=== PATIENT | male | born 1955 | race Caucasian/White ===

== ENCOUNTER 2019-01-13 17:48 | Inpatient (IN) ==
[2019-01-13 18:44] LABS: INFLUENZA A NEGATIVE (NEGATIVE); INFLUENZA B NEGATIVE (NEGATIVE)
[2019-01-13] MEDS ORDERED: TYLENOL PO ONE (19:28)
[2019-01-13 19:32] LABS: URINE SOURCE VOIDED
[2019-01-13 19:37] LABS: BASO# 0.02 X1000 (0.0-0.2); BASO% 0.2 % (0.0-0.8); EOS# 0.06 X1000 (0.0-0.7); EOS% 0.5 % (0.0-10.0); HEMOGLOBIN 15.3 g/dL (14.0-18.0); IMM GRAN# 0.06 X1000 (0.0-0.04); IMM GRAN% 0.5 % (0.0-0.5); LYMPH# 1.05 X1000 (1.2-3.4); LYMPH% 8.2 % (20.5-51.1); MCHC 35.6 g/dL (33-37); MCV 98.4 FL (81-99); MONO# 1.06 X1000 (0.11-0.59); MONO% 8.3 % (1.7-9.3); MPV 10.4 FL (7.4-10.4); NEUT# 10.52 X1000 (1.4-6.5); NEUT% 82.3 % (42.2-75.2); PLT 194 X1000 (130-400); RBC 4.37 XMIL (4.7-6.1); RDW 14.2 % (11.5-14.5); WBC 12.77 X1000 (4.8-10.8)
--- NOTE | 2019-01-13 19:42 | Diag Imaging Result Doc PS360 ---
EXAM: CT HEAD W/O CONTRAST HISTORY: confusion ,fever TECHNIQUE: CT head without contrast COMPARISON: None. FINDINGS: No parenchymal hemorrhage. No epidural or subdural hematoma. No subarachnoid hemorrhage. There is atrophy with chronic microvascular ischemic changes. No mass identified on this noncontrasted exam. No hydrocephalus. No sinus opacification. IMPRESSION: 1.No hemorrhage 2.Atrophy with chronic ischemic changes. This exam was performed using automated exposure control, adjustment of mA or kV according to patient size, and/or use of iterative reconstruction technique. Electronically signed by Hank Snider 01/13/2019 7:40 PM
--- NOTE | 2019-01-13 19:43 | Diag Imaging Result Doc PS360 ---
EXAM: CHEST-2 VIEWS HISTORY: shortness of breath; fever TECHNIQUE: Chest two views COMPARISON: None. FINDINGS: The lungs are well expanded. The heart is not enlarged. The vessels are not distended. There are small infiltrates in the left lower lobe. No pleural effusions. IMPRESSION: Small left lower lobe pneumonia. Electronically signed by Hank Snider 01/13/2019 7:41 PM
[2019-01-13 19:45] LABS: BILIRUBIN URINE NEGATIVE (NEGATIVE); BLOOD URINE 1+ (NEGATIVE); CLARITY CLEAR (CLEAR); COLOR YELLOW; GLUCOSE URINE NEGATIVE (NEGATIVE); KETONE URINE TRACE mg/dL (NEGATIVE); LEUKOCYTES URINE TRACE (NEGATIVE); NITRITE URINE NEGATIVE (NEGATIVE); PROTEIN URINE 1+(30 mg/dL) mg/dL (NEGATIVE); UROBILINOGEN URINE 4 mg/dL
[2019-01-13 19:49] LABS: ALBUMIN 4.1 g/dL (3.5-5.0); CALCIUM 9.6 mg/dL (8.8-10.2); CREATININE 1.4 mg/dL (0.7-1.2); POTASSIUM 4.1 mmol/L (3.5-5.1); TOTAL BILIRUBIN 0.8 mg/dL (0.20-1.00); TOTAL PROTEIN 7.1 g/dL (6.3-8.3)
[2019-01-13 19:52] LABS: URINE BACTERIA 2+ /HFP; URINE CAST NONE SEEN /LPF; URINE CRYSTAL NONE SEEN /HPF; URINE EPITHELIAL CELLS <10 /HPF (<10); URINE RBC <10 /HPF (<10); URINE WBC <10 /HPF (<10); URINE YEAST NONE SEEN /HPF
[2019-01-13 20:07] LABS: INR 0.97; PROTIME 13.4 Seconds (11.0-16.0); PTT 25.3 Seconds (22.3-41.8)
[2019-01-13] MEDS ORDERED: ZOSYN 3.375 GM in NS 50 ML IV ONE (20:14)
[2019-01-13] MEDS ORDERED: VANCOMYCIN 1 GM/NS 1 GM/250 ML IVPB IV ONE (20:15)
[2019-01-13 20:33] LABS: D-DIMER 7.63 ug/mLFEU (0.0-0.52)
[2019-01-13] MEDS ORDERED: ZITHROMAX 500 MG/NS 500 MG/250 ML IVPB IV ONE (21:15)
[2019-01-13] MEDS ORDERED: TYLENOL PO PRN (21:18)
[2019-01-13] MEDS ORDERED: ZOFRAN IV PRN (21:18)
[2019-01-13] MEDS ORDERED: ZITHROMAX 500 MG/NS 500 MG/250 ML IVPB ONE (22:21)
[2019-01-13] MEDS ORDERED: NS 1,000 ML IV ONE (22:35)
[2019-01-14] MEDS ORDERED: NS 1,000 ML IV ONE (02:03)
[2019-01-14 08:33] LABS: BE -0.8 mmoll (-3.0-3.0); BLOOD TYPE ARTERIAL; HCO3-(ACT) 24.2 mmoll (20.0-26.0); METHB 1.5 % (0.0-1.5); O2(CT) 18.3 mL/dL (15.0-23.0); O2HB 94.2 % (95.0-99.0); PCO2(98.6) 27 mmHg (35-45); PO2(98.6) 79 mmHg (60-100); SAMPLE BLOOD; SAO2 98.3 % (95.0-100.0); THB 13.8 g/dL (11.5-17.4)
[2019-01-14 08:41] LABS: ALLEN TEST YES; MODALITY ROOM AIR
[2019-01-14] MEDS: LOVENOX SUBQ SCH (08:50)
[2019-01-14] MEDS: NS 1,000 ML IV SCH ×2 (08:50→18:47)
[2019-01-14] MEDS: LEVAQUIN 750 MG/D5W 750 MG/150 ML IVPB IV SCH (08:50)
[2019-01-14 09:09] LABS: BASO# 0.03 X1000 (0.0-0.2); BASO% 0.2 % (0.0-0.8); EOS# 0.03 X1000 (0.0-0.7); EOS% 0.2 % (0.0-10.0); HEMATOCRIT 39.6 % (42.0-52.0); HEMOGLOBIN 13.6 g/dL (14.0-18.0); IMM GRAN# 0.04 X1000 (0.0-0.04); IMM GRAN% 0.3 % (0.0-0.5); LYMPH# 1.78 X1000 (1.2-3.4); MCH 34.7 PG (27-31); MCHC 34.3 g/dL (33-37); MONO# 1.12 X1000 (0.11-0.59); MONO% 7.6 % (1.7-9.3); MPV 10.2 FL (7.4-10.4); NEUT# 11.79 X1000 (1.4-6.5); NEUT% 79.7 % (42.2-75.2); PLT 140 X1000 (130-400); RBC 3.92 XMIL (4.7-6.1); RDW 14.4 % (11.5-14.5); WBC 14.79 X1000 (4.8-10.8)
[2019-01-14 09:27] LABS: AGAP 12; BUN 24 mg/dL (8-22); CALCIUM 8.3 mg/dL (8.8-10.2); CHLORIDE 105 mmol/L (98-107); COSMO 285; CREATININE 1.2 mg/dL (0.7-1.2); ESTIMATED GFR > 60; GLUCOSE 101 mg/dL (70-104); POTASSIUM 4.1 mmol/L (3.5-5.1); SODIUM 141 mmol/L (136-145); TCO2 24 mmol/L (25-35)
--- NOTE | 2019-01-14 09:35 | Extremity Venous Study ---
EXAM: Venous U/S Bilateral Legs HISTORY: elevated ddimer TECHNIQUE: Bilateral venous Doppler ultrasound of the lower extremities COMPARISON: None. FINDINGS: Right: There is good flow and compressibility in the veins of the right lower extremity. No thrombus. Left: There is good flow and compressibility of the veins of the left lower extremity. No thrombus. IMPRESSION: No evidence of deep venous thrombosis within either lower extremity. Electronically signed by Hank Snider 01/14/2019 9:33 AM
[2019-01-14] MEDS ORDERED: GLUCOPHAGE XR PO SCH (10:00)
--- NOTE | 2019-01-14 10:40 | HISTORY AND PHYSICAL ---
PRIMARY CARE PHYSICIAN: None. CHIEF COMPLAINT: Shortness of breath, subjective fever and confusion. HISTORY OF PRESENTING ILLNESS: This is a 63-year-old male, who presents to [facility] ER from a local homeless retirement. He states that he had no complaints when he arrived. The charter representative from the retirement stated that he was in the kitchen at the [facility] and was appearing to be confused, short of breath and appeared to have a fever. When he arrived to the emergency room, he had a temperature of 102.5 degrees, a pulse of 102, 94% on room air. His chest x-ray showed a small left lower lobe pneumonia with a white blood cell count of 12.77. He was also noted to have a D-dimer of 7.63, but they were unable to do a CTA of pulmonary arteries due to him having a BUN of 25 and a creatinine of 1.4. We have hydrated him and his creatinine is now normal at 1.2, so we will do the CTA of pulmonary arteries today and obtain a bilateral lower extremity venous Doppler, and he will be admitted for further evaluation and treatment. PAST MEDICAL HISTORY: Hypertension and diabetes. PAST SURGICAL HISTORY: None. SOCIAL HISTORY: He currently lives in a homeless retirement. Uses smokeless tobacco, and denies any alcohol or illicit drug use. ALLERGIES: Aspirin. HOME MEDICATIONS: He takes lisinopril 40 mg p.o. daily, memantine 10 mg p.o. b.i.d., metformin 500 mg p.o. daily, metoprolol 100 mg p.o. daily, and nifedipine 60 mg p.o. daily. LABORATORY DATA: Showed a white blood cell count of 12.77, hemoglobin of 15.3, hematocrit 43, platelets 194. Recheck this morning showed a white blood cell count of 14.79. PT and INR of 13.4 and 0.97 with a D-dimer of 7.63. ABG showed a pH of 7.50, pCO2 of 27, PO2 79, bicarbonate 24.2, and this was on room air. Sodium of 139, potassium 4.1, chloride 103, CO2 20. BUN of 25, creatinine 1.4, glucose 137. Cardiac enzyme was negative. ProBNP of 865. Plasma lactate of 2.3 on arrival; this a.m. was down to 1.8. His creatinine has returned to normal this morning at 1.2. Urinalysis was negative, except for 2+ bacteria. Influenza A and B were both negative. X-RAYS: Chest x-ray showed a small left lower lobe pneumonia. CT of the head showed no hemorrhage and atrophy with chronic ischemic changes. His bilateral lower extremity venous Doppler showed no evidence of DVT within either lower extremity. REVIEW OF SYSTEMS: He was positive for subjective fever. Denied any chills, body aches, blurred vision, dizziness, chest pain. He has had a nonproductive cough, some shortness of breath. Denied any abdominal pain, constipation, diarrhea, burning or hurting with urination. PHYSICAL EXAMINATION: VITAL SIGNS: On arrival he had a temperature of 102.5 degrees, pulse 102, respirations 20, blood pressure 143/77, satting 94% on room air. GENERAL: This is a 63-year-old male, who is lying in the bed and answers questions appropriately. HENT: Normocephalic, atraumatic. Normal ENT inspection. Oropharynx and nares are clear. EYES: Pupils are equal, round, and reactive to light and accommodation. Extraocular movements are intact. NECK: Normal inspection. Normal range of motion. LUNGS: Clear to auscultation bilaterally with equal lung expansion and chest wall movement. HEART: On arrival had some tachycardia, but now regular rate and rhythm. No murmurs, rubs, or gallops. ABDOMEN: Soft, nontender, nondistended. Bowel sounds are present x4 quadrants. MUSCULOSKELETAL: He has 5/5 strength x4 extremities. NEUROLOGICAL: The cranial nerves 2-12 appear grossly intact. ASSESSMENT: 1. Left lower lobe pneumonia. 2. Elevated D-dimer. 3. Hypertension, history of. 4. Leukocytosis secondary to #1. PLAN: He was admitted to the medical unit at [place]. We will place on telemetry. O2 per protocol. Diabetic diet. We are going to do a CTA of the pulmonary arteries today due to his elevated D-dimer. He is on Lovenox 40 mg subcutaneous q. 24 hours until it is determined that he has a blood clot; if so, will change that dosage to 1 mg/kg. We have him on Levaquin 750 mg IV q. 24 hours, normal saline at 125 mL an hour, Zofran 4 mg IV q. 4 hours p.r.n., and we will give him DuoNeb q. 4 hours. Recheck a CBC, BMP in the a.m. Continue home medications as previously identified. Further orders after being seen by attending. Dictated by ALICIA Farah for Santo Hunter MD cc: ALICIA Farah MD
--- NOTE | 2019-01-14 10:46 | Diag Imaging Result Doc PS360 ---
EXAM: CT ANGIOGRM PULMONARY ARTERIES HISTORY: ELEVATED DDIMER TECHNIQUE: CT chest with intravenous contrast. Pulmonary arterial protocol with MIP images. COMPARISON: None. FINDINGS: No pleural effusions. No thoracic aortic aneurysm or dissection. Normal opacification of the pulmonary arteries and their major branches. Motion degrades image quality in the lower lungs. The heart is borderline mildly prominent. No enlarged lymph nodes. There are right lower lobe infiltrates. No bronchiectasis. There are several calcified left hilar lymph nodes with scattered granuloma. Limited images through the upper abdomen reveal cholecystectomy. IMPRESSION: 1.No pulmonary emboli 2.Right lower lobe pneumonia This exam was performed using automated exposure control, adjustment of mA or kV according to patient size, and/or use of iterative reconstruction technique. Electronically signed by Hank Snider 01/14/2019 10:44 AM
[2019-01-14] MEDS: TOPROL XL PO SCH (10:55)
[2019-01-14] MEDS: ADALAT CC PO SCH (10:55)
[2019-01-14] MEDS: NAMENDA PO SCH ×2 (10:55→20:30)
[2019-01-14] MEDS: PRINIVIL PO SCH (10:55)
--- NOTE | 2019-01-14 11:39 | HISTORY AND PHYSICAL ---
ADDENDUM: I saw this patient [id number] and we agree with the assessment and plan of nurse practitioner Yenny Lackey. She has been diagnosed as having left lower lobe pneumonia for which we are going to give her Lovenox IV along with IV fluids. Her D-dimer has been elevated, but she also has elevated creatinine levels of 1.4. We will therefore repeat a basic metabolic panel, and if her creatinine levels have improved we are going to obtain CT angiogram of the pulmonary arteries to rule out pulmonary thromboembolism. Further recommendations will be given as per hospital course. cc: Santo Hunter MD
[2019-01-14] MEDS: DUONEB (A & A) INH SCH ×4 (12:02→23:07)
--- NOTE | 2019-01-15 00:36 | PROVIDER DOCUMENTATION ---
This chart was entered by Kaelyn Fernandes Scribe, acting as scribe for Rajiv Bocanegra MD. HPI-General Adult - General Chief Complaint: General Adult Stated Complaint: SOB Time Seen by Provider: 01/13/19 18:19 Source: patient Allergies/Adverse Reactions: Patient Allergies Allergy/AdvReac Type Severity Reaction Status Date / Time aspirin AdvReac Mild Unknown Verified 01/14/19 03:54 Home Medications: Home Medication List Medication Instructions Recorded Confirmed Last Taken Type Lisinopril 40 mg PO DAILY 01/14/19 01/14/19 Unknown History Memantine HCl 10 mg PO BID 01/14/19 01/14/19 Unknown History Metformin HCl [Metformin HCl ER] 500 mg PO DAILY 01/14/19 01/14/19 Unknown History Metoprolol Succinate E.r. [Toprol 100 mg PO DAILY 01/14/19 01/14/19 Unknown History Xl] Nifedipine [Nifedipine ER] 60 mg PO DAILY 01/14/19 01/14/19 Unknown History - History of Present Illness -Gen Adult Nature of Presenting Problems: Pt is 63/m presenting to the ED from homeless senior living. He states that they wanted him to come and that he has no complaints at this time. When speaking w/ a traffic workforce representative from the senior living, she states that [facility] was [facility] the [facility] and was appearing to be confused and SOB. They then brought him in to the ED to be checked out. He was also noted with fever. Quality of Pain: reports: none Severity: reports: mild Onset/Duration: reports: just prior to arrival Timing: reports: still present Context/Activities at Onset: reports: none Modifying Factors: improves with: nothing Associated Symptoms: reports: fever/chills. denies: cough, diarrhea, nausea, vomiting, weakness Similar Symptoms Previously?: No Recently seen or treated by another doctor?: No Review of Systems - Adult - REVIEW OF SYSTEMS - ADULT ROS:: by patient's caregiver Constitutional: reports: fever. denies: chills Eyes: reports: no symptoms reported Ears, Nose, Mouth & Throat: reports: no symptoms reported. denies: ear pain, throat pain Cardiovascular: reports: no symptoms reported. denies: chest pain, edema Respiratory: reports: no symptoms reported. denies: cough, shortness of breath, wheezing Gastrointestinal: reports: no symptoms reported. denies: abdominal pain, diarrhea, nausea, vomiting Genitourinary: reports: no symptoms reported Musculoskeletal: reports: no symptoms reported Integumentary: reports: no symptoms reported Neurological: reports: no symptoms reported, dizziness/vertigo Psychiatric: reports: other (confusion /dementia) Endocrine: reports: no symptoms reported Hematologic/Lymphatic: reports: no symptoms reported Allergic/Immunologic: reports: no symptoms reported All Other Systems: Reviewed and Negative Past History - Adult - PAST MEDICAL HISTORY-ADULT Review of Records: reports: Old Records Reviewed, Nursing Assessment Review, Medications Reviewed, Social history reviewed & non-contributory. Cardiovascular: reports: HTN Respiratory: reports: denies history Gastrointestinal: reports: denies history Genitourinary: reports: denies history Musculoskeletal: reports: denies history Neurological: reports: denies history Psychiatric: reports: denies history Endocrine/Immune: reports: Diabetes Other Conditions: reports: denies history - PRIOR SURGERIES/PROCEDURES Surgical/Procedure History: reports: none - SOCIAL HISTORY Smoking: other (smokeless) Provider spent 3-5 mins advising pt. on dangers of tobacco.: Discussed manners to quit use, and f/u contacts for add'l counseling. Substance Use: none/never Alcohol Use Frequency: never Living Situation: group Physical Exam-General - PHYSICAL EXAM-ADULT Initial Vital Signs Reviewed: Yes - CONSTITUTIONAL General Appearance: alert, mild distress (pt seems slightly anxious at time of exam) - EYES Eyes: PERRL/EOMI - HEAD, EARS, NOSE, MOUTH & THROAT HENMT: normocephalic/atraumatic, moist mucous membranes - NECK Neck: non-tender, full range of motion, supple, normal inspection - RESPIRATORY Respiratory: chest non-tender, lungs clear, normal breath sounds - CARDIOVASCULAR Cardiovascular: tachycardia (102) - GASTROINTESTINAL (ABDOMEN) Abdominal Exam: normal bowel sounds, non tender, soft - LYMPHATIC Lymphatic: no adenopathy - MUSCULOSKELETAL Back Exam: normal inspection, no CVA tenderness, no vertebral tenderness Extremity: normal range of motion, non-tender, normal gait, normal inspection - SKIN Integumentary: normal color, warm/dry - NEUROLOGIC Neurologic: grossly normal - PSYCHIATRIC Psych/Mental Status: oriented x 3, anxious Progress - PLAN OF CARE/RESULTS Progress/Plan/Lab Results: Vital Signs - 8 hr 01/13/19 18:09 Temperature 102.5 F H Pulse Rate 102 H Respiratory Rate 20 Blood Pressure 143/77 O2 Sat by Pulse Oximetry 94 L Orders Category Date Time Status INFLUENZA SCREEN PL Stat Lab 01/13/19 18:11 Ordered Result Diagrams: 01/14/19 08:45 01/14/19 08:45 - EKG 1 Time of EKG reading by physician:: 19:17 EKG Read and Signed by:: Rajiv Bocanegra EKG Interpretation (*Must complete 3 of following elements*): Abnormal (incomplete left bundle branch block St & T wave abnormality, consider lateral ischemia, Abnormal ECG) Rate: 100 Rhythm: normal sinus [place]: normal QRS: normal - CT/MRI 1 CT Study: Head Impression: Abnormal ( EXAM: CT HEAD W/O CONTRAST HISTORY: confusion ,fever TECHNIQUE: CT head without contrast COMPARISON: None. FINDINGS: No parenchymal hemorrhage. No epidural or subdural hematoma. No subarachnoid hemorrhage. There is atrophy with chronic microvascular ischemic changes. No mass identified on this noncontrasted exam. No hydrocephalus. No sinus opacification. IMPRESSION: 1.No hemorrhage 2.Atrophy with chronic ischemic changes. This exam was performed using automated exposure control, adjustment of mA or kV according to patient size, and/or use of iterative reconstruction technique. Electronically signed by Hank Snider 01/13/2019 7:40 PM 01/13/191939 Interpreting Physician: Hank Snider MD Dictated Date/Time: 01/13/191938) - CONSULTS/PCP/HOSPITALIST Notification #1 *Consult/PCP/Hospitalist*: Dr. Rojas Time Discussed: 21:16 Consult Disposition: Admit (give azithromycin and zosyn; ok to stop vancomycin) Departure - Departure Date of Disposition Decision: 01/13/19 Time of Disposition Decision: 21:17 DIAGNOSIS: Confusion Pneumonia Qualifiers: Pneumonia type: due to unspecified organism Laterality: left Lung location: lower lobe of lung Qualified Code(s): J18.1 - Lobar pneumonia, unspecified organism Sepsis Qualifiers: Sepsis type: sepsis due to unspecified organism Qualified Code(s): A41.9 - Sepsis, unspecified organism Disposition: ADMITTED INPATIENT 09 Certified Medical Emergency: Emergent Condition: Serious - Critical Care Note This patient required my direct & personal management of CC.: No Attestation - Physician/ OLVIN Attestation Patient care was provided by Advanced Practice Provider:: No The physician spent face to face time with patient:: Yes Advanced Practice Provider documentation review:: Supervising physician onsite and consulted in the evaluation and care of this patient. The physician did have a face to face encounter with the patient. This chart was documented by the indicated scribe, (Kaelyn Fernandes, [place]) and accurately reflects the services I performed and decisions made by , Rajiv Bocanegra MD, as attested by the provider's signature.
[2019-01-15] MEDS: NS 1,000 ML IV SCH ×2 (02:31→08:14)
[2019-01-15] MEDS: DUONEB (A & A) INH SCH ×3 (03:17→12:52)
[2019-01-15 07:35] VITALS: BP 112/83
[2019-01-15] MEDS: TOPROL XL PO SCH (08:13)
[2019-01-15] MEDS: LEVAQUIN 750 MG/D5W 750 MG/150 ML IVPB IV SCH (08:13)
[2019-01-15] MEDS: PRINIVIL PO SCH (08:13)
[2019-01-15] MEDS: LOVENOX SUBQ SCH (08:13)
[2019-01-15] MEDS: NAMENDA PO SCH (08:13)
[2019-01-15] MEDS: ADALAT CC PO SCH (08:14)
--- NOTE | 2019-01-15 15:37 | DISCHARGE SUMMARY ---
ADMISSION DATE: 01/14/2019 DISCHARGE DATE: 01/15/2019 DISCHARGE DIAGNOSES: 1. Left lower lobe pneumonia. 2. Acute kidney injury secondary to dehydration. 3. Chronic obstructive pulmonary disease. 4. Hypertension. 5. Type 2 diabetes mellitus. HOSPITAL COURSE: This is a 63-year-old gentleman, who was admitted through the emergency room after he had a brief episode of confusion and was noted to be a little bit having shortness of breath. He also had fever and therefore was brought into the emergency department. Here, he was noted to have elevated creatinine levels of 1.4, and therefore he received IV fluids. He did have CT angiogram of the pulmonary arteries to rule out any pulmonary thromboembolism. No pulmonary embolism was noted on the CT angiogram, although there was right lower lobe infiltrates, which were mild in degree. The patient has been getting IV levofloxacin and has been completely stable. He did have some wheezing that has completely resolved with albuterol and Atrovent nebulization treatments. His condition has been stable, and therefore he is going to be discharged home today. DISCHARGE MEDICATIONS: 1. Levofloxacin 750 mg orally once daily for 7 days. 2. Albuterol and Atrovent nebulization treatments every 6 hours as needed for wheezing. 3. ProAir HFA 2 puffs q. 4 hours as needed for wheezing. 4. Lisinopril 40 mg orally once daily. 5. Memantine 10 mg orally twice daily. 6. Metformin ER 500 mg orally once daily. 7. Metoprolol ER 100 mg orally once daily. 8. Nifedipine 60 mg orally once daily. FOLLOW-UP: He will follow with his PCP who is Dr. Javed Light in approximately 1 week. CONDITION: Stable. DISPOSITION: Home. cc: MD Javed Goss Jr, MD
== END 2019-01-15 13:40 | disposition home or self-care (01) | DRG 194 ==
LOC: P.ED 17:48 → P.MEDSURG 01-14 01:59 → SUATTDRO 01-14 01:59
PROVIDERS: ATTEND Internal Medicine
CPT/HCPCS: 36415; 70450; 71020; 71046; 71275; 80048; 80053; 81001; 82550; 82805; 82948; 83605; 83880; 84484; 85025; 85379; 85610; 85730; 87040; 87275; 87276; 87804; 93005; 93970; 94640; 96361; 96365; 96366; 96368; 99285; A9270; J0456; J1650; J1956; J2543; J7030; Q9967; XXXXX